=== PATIENT | male | born 1990 | race Hispanic/Latino ===

== ENCOUNTER 2019-03-31 17:55 | Emergency (ER) | payer SELFPAY ==
[2019-03-31] MEDS ORDERED: TRAMADOL HCL 50 MG TABLET ONE (18:38)
== END 2019-03-31 18:57 | disposition home or self-care (01) ==
LOC: EDH 17:55
DX: S62.647A Nondisplaced fracture of proximal phalanx of left little finger, initial encounter for closed fracture (principal); I10 Essential (primary) hypertension; E78.00 Pure hypercholesterolemia, unspecified; X58.XXXA Exposure to other specified factors, initial encounter; Z91.041 Radiographic dye allergy status; Z72.0 Tobacco use; Y93.89 Activity, other specified; Y92.009 Unspecified place in unspecified non-institutional (private) residence as the place of occurrence of the external cause; Y99.9 Unspecified external cause status
CPT/HCPCS: 73130